=== PATIENT | male | born 1995 | race African-American/Black ===

== ENCOUNTER 2018-05-15 05:50 | Day surgery (SDC) | payer BC ==
[~2018-05-15] VITALS: Ht 188 cm; Wt 78.0 kg
[2018-05-15] VITALS (9 sets, daily range): BP systolic 128–146; BP diastolic 63–83
[~2018-05-15 05:50] MED LIST: NKM
--- NOTE | 2018-05-15 07:25 | Pre-Procedure Note/Attestation ---
Pre-Procedure Note/Attestation Complete Prior to Procedure Planned Procedure: bilateral Procedure Narrative: laparoscopic bilateral inguinal hernia repair with mesh; umbilical hernia repair Indications for Procedure Pre-Operative Diagnosis: left inguinal hernia; possible recurrent right inguinal hernia; umbilical hernia Attestation I attest that I discussed the nature of the procedure; its benefits; risks and complications; and alternatives (and the risks and benefits of such alternatives ), prior to the procedure, with the patient (or the patient's legal field representative/health education). I attest that, if there was a reasonable possibility of needing a blood transfusion, the patient (or the patient's legal field representative/health education) was given the [facility] standardized written summary, pursuant to the Rafael Dav Blood Safety Act ([place] Health and Safety Code # 1645, as amended). I attest that I re-evaluated the patient just prior to the surgery and that there has been no change in the patient's H&P, except as documented below: Marcial Carter May 15, 2018 07:25
[2018-05-15] MEDS ORDERED: Bupivacaine w/Epi 0.5% 30ml Vial INJ ONE (07:26)
[2018-05-15] MEDS ORDERED: Bacitracin 50000 Units Vial ONE (07:27)
[2018-05-15] MEDS ORDERED: Sterile Water For Irrig 2000ml IRRIG ONE (07:30)
[2018-05-15] MEDS ORDERED: Ketorolac 30mg Inj ONE (07:30)
[2018-05-15] MEDS ORDERED: ceFAZolin sod 2 GM in D5W 110 ML IV ONE (07:30)
[2018-05-15] MEDS ORDERED: LR 1000ml ONE (07:30)
[2018-05-15] MEDS ORDERED: NS Irrig 1000ml ONE (07:30)
[2018-05-15] MEDS ORDERED: Midazolam 2mg/2ml Inj ONE (07:36)
[2018-05-15] MEDS ORDERED: fentaNYL 100 mcg/2 mL IV ONE (07:37)
[2018-05-15] MEDS ORDERED: Lidocaine 1% MPF 10mg/ml 5ml ONE (07:38)
[2018-05-15] MEDS ORDERED: Sodium Chloride 10ml vial INJ ONE (07:38)
[2018-05-15] MEDS ORDERED: Propofol 200mg/20ml IV ONE (07:38)
[2018-05-15] MEDS ORDERED: Zemuron 50mg/5ml Inj IV ONE (07:51)
[2018-05-15] MEDS ORDERED: LR 1000ml 1,000 ML IVLG SCH (08:22)
--- NOTE | 2018-05-15 08:28 | Anethesia Preoperative Eval ---
Anesthesia Pre-op PMH/ROS General Date of Evaluation: May 15, 2018 Time of Evaluation: 07:30 Anesthesiologist: Hubert ASA Score: ASA 1 Mallampati Score Class I : Soft palate, uvula, fauces, pillars visible Class II: Soft palate, uvula, fauces visible Class III: Soft palate, base of uvula visible Class IV: Only hard plate visible Mallampati Classification: Class II Surgeon: Felix Diagnosis: Inguinal Herniorrhaphy Surgical Procedure: Laparoscopic IH Allergies: Coded Allergies: AVOCADO (Verified Allergy, Unknown, 05/12/18) Wheat (Verified Allergy, Unknown, 05/12/18) Uncoded Allergies: NUT (Allergy, Unknown, 05/12/18) Patient NPO?: Yes NPO Date: May 14, 2018 NPO Time: 22:00 Past Medical History Cardiovascular: Denies: HTN, CAD, [place], valve dz, arrhythmia, other Pulmonary: Denies: asthma, COPD, KATELYNN, other Gastrointestinal/Genitourinary: Denies: GERD, CRI, ESRD, other Neurologic/Psychiatric: Denies: dementia, CVA, depression/anxiety, TIA, other Endocrine: Denies: DM, hypothyroidism, steroids, other HEENT: Denies: cataract (L), cataract (R), glaucoma, KIVALINA (L), KIVALINA (R), other Hematology/Immune: Denies: anemia, DVT, bleeding disorder, other Musculoskeletal/Integumentary: Denies: OA, RA, DJD, DDD, edema, other PMH Narrative: Denies PSxH Narrative: Right IH, T&A Anesthesia Pre-op Phys. Exam Physician Exam Last Vital Signs Date Time Temp Pulse Resp B/P (MAP) Pulse Ox O2 Delivery O2 Flow Rate FiO2 05/15/18 06:18 Room Air 05/15/18 06:17 97.9 54 18 133/74 99 Constitutional: NAD Neurologic: CN 2-12 intact Cardiovascular: RRR Respiratory: CTA Gastrointestinal: S/NT/ND Airway Exam Mallampati Score: Class II MO: full ROM: full Teeth: intact Anesthesia Pre-op A/P Labs WNL Risk Assessment & Plan Assessment: Healthy male for Lap IH Plan: GETA Status Change Before Surgery: No Pre-Antibiotics Drug: Ancef 2 GM Given Within 1 Hr of Incision: Yes Time Given: 08:00 Rafael Gaspar MD May 15, 2018 08:28
--- NOTE | 2018-05-15 08:29 | Immediate Post-Op Evaluation ---
Immediate Post-Op Evalulation Immediate Post-Op Evalulation Procedure: Laparoscopic IH Date of Evaluation: May 15, 2018 Time of Evaluation: 10:25 IV Fluids: 750 Blood Pressure Systolic: 146 Blood Pressure Diastolic: 83 Pulse Rate: 71 Respiratory Rate: 14 O2 Sat by Pulse Oximetry: 100 Temperature (Fahrenheit): 97.9 Pain Score (1-10): 0 Nausea: No Vomiting: No Complications No complication Patient Status: reacts, patent, extubated, none Hydration Status: adequate Drug: Ancef 2 GM Given Within 1 Hr of Incision: Yes Time Given: 08:00 Rafael Gaspar MD May 15, 2018 08:29
[2018-05-15] MEDS ORDERED: Hydromorphone 0.5mg/0.5ml inj IVP PRN (08:30)
[2018-05-15] MEDS ORDERED: DiphenhydrAMINE 50mg/ml Inj IVP PRN (08:30)
--- NOTE | 2018-05-15 10:08 | Brief Operative Note ---
Immediate Post Operative Note Operative Note Pre-op Diagnosis: left inguinal hernia; possible recurrent right inguinal hernia; umbilical hernia Procedure: 1. laparoscopic left inguinal hernia repair with mesh 2. umbilical hernia repair Post-op Diagnosis: 1. left indirect inguinal hernia 2. umbilical hernia. Surgeon: ronald Anesthesiologist: jillian Anesthesia: general, local Specimen: none Complications: none Condition: stable Fluids: see records Estimated Blood Loss: minimal Drains: none Implant(s) used?: Yes - bard 3d left medium mesh Marcial Carter May 15, 2018 10:08
--- NOTE | 2018-05-15 10:19 | 48 Hour Post Anesthesia Eval ---
Post Anesthesia Evaluation Procedure: Laparoscopic IH Date of Evaluation: May 15, 2018 Time of Evaluation: 11:00 Blood Pressure Systolic: 133 0: 77 Pulse Rate: 73 Respiratory Rate: 15 O2 Sat by Pulse Oximetry: 100 Airway: patent Nausea: No Vomiting: No Pain Intensity: 1 Hydration Status: adequate Cardiopulmonary Status: Stable Mental Status/LOC: patient returned to baseline Follow-up Care/Observations: As per surgery Post-Anesthesia Complications: No anesthetic complication Follow-up care needed: N/A Rafael Gaspar MD May 15, 2018 10:19
[2018-05-15] MEDS ORDERED: Tylenol #3 tab (300mg/30mg) ORAL PRN (18:01)
[2018-05-15] MEDS ORDERED: D5 1/2NS 1,000 ML IV SCH (18:01)
[2018-05-15] MEDS ORDERED: Norco 5mg/325mg tab ORAL PRN (18:01)
[2018-05-15] MEDS ORDERED: HYDROmorphone 1mg/ml Carpuject SUBQ PRN (18:01)
--- NOTE | 2018-05-15 19:15 | Operative Note - Dictated ---
DATE OF OPERATION: 05/15/2018 PREOPERATIVE DIAGNOSES: 1. Left inguinal hernia. 2. Possible recurrent right inguinal hernia. 3. Umbilical hernia. POSTOPERATIVE DIAGNOSES: 1. Left indirect inguinal hernia. 2. Umbilical hernia. OPERATION PERFORMED: 1. Laparoscopic left inguinal hernia repair with mesh. 2. Umbilical hernia repair. ATTENDING SURGEON: Marcial Carter M.D. ENGINE REPAIRER: None. ANESTHESIOLOGIST: Rafael Gaspar M.D. ANESTHESIA: General STAFF EDITOR plus local. SPECIMENS: None. ESTIMATED BLOOD LOSS: Minimal. IV FLUIDS: Please see anesthesia records. COMPLICATIONS: None. CONDITION: Stable. DRAINS: None. IMPLANTS: Bard 3D mesh medium-sized, lot [id number], reference [id number], date of expiration 12/22/2022. COUNTS: Sponge and needle count correct x2. COMPLICATIONS: None. INDICATIONS FOR PROCEDURE: This is a 23-year-old male who was referred to Dr. Carter for evaluation of a left groin bulge/hernia. The patient was seen in the office and diagnosed with a reducible left inguinal hernia. At the same time, the patient was identified to have reducible umbilical hernia as well. Furthermore, the patient had a history of open right inguinal hernia repair in the past and states occasionally feel some discomfort in the area. Upon examination, a reducible left inguinal hernia and reducible umbilical hernia were identified and question of potential right inguinal hernia recurrent. At this time, all options and alternatives were discussed with the patient including surgery versus none. The patient expressed understanding and expressed desire to proceed with surgical intervention. We discussed laparoscopic versus open and given findings and symptoms, surgery will be laparoscopic. Plan would be to use the port site repair of the umbilical hernia during the procedure followed by laparoscopic left inguinal hernia repair and evaluation for possible recurrent right and repair if necessary. Risks, benefits, and alternatives were discussed in detail including the use of mesh. The patient expressed understanding and consented for surgery. Preoperatively, the patient was seen by primary care physician for a preoperative workup and cleared for surgery and discussion was had with the patient's parents as well, who expressed understanding and stated they would be there with him throughout the process. OPERATIVE NOTE: The patient taken to the operating room and placed on the operating table in supine position with bilateral arms tucked. All bony prominences well padded. SCDs were placed. Preoperative time-out was taken identifying the patient, procedure, operative staff, and surgical staff. No Ramirez catheter was inserted given the patient voided prior to entering the operating room. A 2 g Ancef IV were given one hour prior to cut time. General anesthesia was induced. The patient was intubated. The abdomen was clipped, prepped, draped in standard surgical fashion. The umbilical hernia defect was identified and as discussed prior, this will be used as port site for closure and repair at the end of the procedure. An umbilical incision was made using a fresh #11 scalpel. Incision was carried down to the fascia where the defect was identified. A 12 mm Alena trocar was inserted through the defect and the abdomen insufflated to 12 to 15 mmHg. The patient tolerated the insufflation well. Laparoscope was then inserted and the abdomen inspected. No injury from initial trocar placement noted. The right upper quadrant looked normal with a very healthy liver with sharp edges. Left lower quadrant was normal with a healthy left lobe of the liver and healthy stomach. The omentum was over draped the intestines. In the right lower quadrant, there were no abnormalities and no hernia defects identified. Satisfactory repair from the patient's prior open inguinal hernia repair identified and noted. Cecum normal. Pelvis otherwise normal. In the left lower quadrant, there was moderate-sized indirect left inguinal hernia with sac that could be noted tracking through the inguinal canal. At this time, decision made to proceed with laparoscopic left inguinal hernia repair. Secondary trocars placed under direct visualization beginning with a right mid abdominal trocar site 5 millimeter plus a left mid abdominal trocar site 5 millimeter. Local anesthetic was infiltrated throughout all port sites throughout the procedure as necessary. Laparoscopic scissors/lisa were then used to make a peritoneal incision from the level of the anterior superior iliac spine towards the median umbilical ligament, 2 cm above the hernia defect site. A peritoneal flap was dissected down until the entirety of the hernia sac could be noted. The cord structures were identified and mobilized and protected throughout the procedure. The medial dissection was carried out until the pubic tubercle and Shane's ligament could be identified and freely cleared. The lateral dissection was carried out very carefully for appropriate mesh size placement. Following this, the hernia was reduced and divided freeing up the peritoneal attachment. At this time, satisfactory reduction was identified. There was 2 small holes made in the thin peritoneal lining and other anything else was otherwise hemostatic and otherwise satisfactory. No lipoma of the cord was noted. No other abnormalities were noted. The cord structures were identified and without compromise. At this time, a Bard 3D mesh medium-sized left was brought into the operative field and entered through the umbilical 12 mm port site. Once in the abdomen, it was positioned properly and satisfactory and noted to be in satisfactory position. A [employer] laparoscopic AbsorbaTack, expiration 02/24/2021, reference number [id number], lot number [id number] was then used to tuck the mesh into place at the Shane's ligament and one just cephalad to that over the pubis ensuring to identify and protect the epigastrics. Following this, satisfactory repair was noted with good mesh placement. The peritoneal edges were reapproximated using the AbsorbaTack. Following this, a Tisseel sealant glue was then used to reapproximate the peritoneal edges as well as a laparoscopic 5 mm clip real time analyst to close the two small defect holes made in the peritoneum. At the conclusion of this, the satisfactory hernia repair with mesh placement was noted. The peritoneal lining was reattached without any defects or mesh exposed. After there was appropriate positioning and none placed in any critical places including triangle of doom or pain. Good reapproximation was noted. Good hernia repair was noted. At this time, began the conclusion of our procedure. The secondary trocars removed under direct visualization followed by the umbilical trocar site. The abdomen was desufflated. The fascial edges of the umbilical defect were cleaned to a fresh healthy tissue using electrocautery and Metzenbaum scissors. Once good healthy tissue was identified and no overlying peritoneum, the fascial defect was closed using #0 Vicryl interrupted sutures. Once the hernia defect was repaired, all wounds were cleansed. Local anesthetic was infiltrated. I began our closure. The skin incisions were then all closed using 4-0 Monocryl subcuticular interrupted sutures. Following this, the wounds were cleansed and skin glue and Steri-Strips were applied. At the end of procedure, both testicles were identified in the sac without complication. The patient tolerated the procedure well, was extubated and taken to postanesthetic care unit in a stable condition. Marcial Carter M.D. DR: Mag JOB#: [id number] CC: ARMANDO
== END 2018-05-15 13:15 | disposition home or self-care (01) ==
LOC: SUR 05:50
DX: K40.90 Unilateral inguinal hernia, without obstruction or gangrene, not specified as recurrent (principal); K42.9 Umbilical hernia without obstruction or gangrene; Z91.018 Allergy to other foods
CPT/HCPCS: 94003; 94150; J2250; J2405